=== PATIENT | male | born 1975 | race Two or more races ===

== ENCOUNTER 2017-08-02 17:08 | Emergency (ER) | payer SELFPAY ==
[~2017-08-02] VITALS: Ht 185.4 cm; Wt 125.0 kg
[2017-08-02] MEDS ORDERED: KETOROLAC 60MG/2ML VIAL IM ONE (18:45)
[2017-08-02] MEDS ORDERED: LIDOCAINE HCL 1% 20ML VIAL (Pyxis) INJ MC ONE ×2 (18:45→21:45)
[2017-08-02] MEDS ORDERED: HYDROCODONE/ACETAMINOPHEN 5/325MG TABLET PO ONE (18:45)
[2017-08-02] MEDS ORDERED: BACITRACIN ZINC OINT UDPKT TOP ONE ×2 (18:45→22:15)
[2017-08-02] MEDS ORDERED: TETANUS, DIPHTHERIA, PERTUSSIS VAC/PF 0.5ML (>7YR OLD) IM ONE (21:30)
[2017-08-02 23:05] VITALS: BP 142/74
== END 2017-08-02 23:10 | disposition home or self-care (01) ==
LOC: ER 20:45
DX: S92.342A Displaced fracture of fourth metatarsal bone, left foot, initial encounter for closed fracture (principal); S92.352A Displaced fracture of fifth metatarsal bone, left foot, initial encounter for closed fracture; S91.312A Laceration without foreign body, left foot, initial encounter; H91.3 Deaf nonspeaking, not elsewhere classified; H26.9 Unspecified cataract; V19.3XXA Pedal cyclist (driver) (passenger) injured in unspecified nontraffic accident, initial encounter; Y93.55 Activity, bike riding; Y92.89 Other specified places as the place of occurrence of the external cause
CPT/HCPCS: 12002; 73610; 73630; 96372; 99284; J1885; J3490; Z7610